=== PATIENT | female | born 1960 | race Caucasian/White ===

== ENCOUNTER 2018-01-11 22:44 | Emergency (ER) | payer BC ==
[~2018-01-11] VITALS: Ht 166.4 cm; Wt 99.0 kg
[2018-01-11 22:51] VITALS: BP 166/92; PULSE 66; RESP 16; O2SAT 96
[2018-01-11 22:54] VITALS: BP 163/101; PULSE 70; RESP 16; O2SAT 96
[2018-01-11] MEDS ORDERED: LEVO75TA3 PO (22:58)
[2018-01-11] MEDS ORDERED: METO1TAB9 PO (22:58)
[2018-01-11] MEDS ORDERED: PRAV20TA2 PO (22:58)
[2018-01-11 22:59] VITALS: BP 197/114; PULSE 70; RESP 16; TEMP 98.4; O2SAT 99
[2018-01-11] MEDS ORDERED: VENTAER INH (23:10)
[2018-01-11 23:35] VITALS: BP 163/92; PULSE 59; RESP 16; O2SAT 98
--- NOTE | 2018-01-11 23:35 | PD ---
HPI . Toxic exposure Chief Complaint: Allergic/Adverse Reaction Time Seen by Provider: 22:48 Travel History International Travel<30 days: No Contact w/Intl Traveler<30days: No Traveled to known affect area: No History of Present Illness HPI 57-year-old female and her daughter walked into the motel room and noted noxious fumes emanating from the apartment next door. Both became instantly lightheaded evacuated themselves from the premises. Patient had daughter called ambulance secondary to her having decreased cognitive abilities as per patient, and feeling lightheaded. Patient had some similar reaction 2 months prior from a contact high as per patient from marijuana in a similar situation in an apartment next door in a motel in [place]. Patient notes interval improvement since being brought in by ambulance notes significant improvement in her drowsiness and symptomatology. Patient denies headache, visual changes, stiff neck, chest pain, shortness of breath, leg swelling, focal weakness numbness or tingling, seizure activity. PFSH Past Medical History Narrative Medical Past medical history reviewed Asthma: Yes High Cholesterol: Yes Diminished Hearing: No GERD: Yes Hypertension: Yes Thyroid Disease: Yes Tetanus Vaccination: < 5 Years Influenza Vaccination: Yes ?: Not LMP: MENOPAUSAL : 1 Para: 1 Past Surgical History Oral Surgery: Yes (WISDOM TEETH X4) Social History Alcohol Use: No Tobacco Use: No Substance Use: No Allergies-Medications (Allergen,Severity, Reaction): Coded Allergies: acetaminophen (Verified Allergy, Severe, HIVES, 01/11/18) oxycodone (Verified Allergy, Severe, HIVES, 01/11/18) phenolphthalein (Verified Allergy, Severe, HIVES, 01/11/18) Reported Meds & Prescriptions Reported Meds & Active Scripts Active Reported Ventolin Hfa 18 GM Inh (Albuterol Sulfate) 90 Mcg/Act Aer 2 Puff INH Q4-6H PRN Pravastatin 20 Mg Tab 20 Mg PO DAILY Levothyroxine (Levothyroxine Sodium) 75 Mcg Tab 75 Mcg PO DAILY Metoprolol Succinate ER 24 HR (Metoprolol Succinate) 50 Mg Tab 50 Mg PO DAILY Narrative Medication Allergies and medications reviewed Review of Systems Except as stated in HPI: all other systems reviewed are Neg General / Constitutional: No: Fever Eyes: Positive: Blurred Vision, No: Diploplia, Visual changes HENT: Positive: Lightheadedness, No: Headaches Cardiovascular: No: Chest Pain or Discomfort Respiratory: No: Shortness of Breath Gastrointestinal: No: Abdominal Pain Genitourinary: No: Dysuria Musculoskeletal: No: Pain Skin: No Rash Neurologic: No: Weakness Psychiatric: No: Depression Endocrine: No: Polydipsia Hematologic/Lymphatic: No: Easy Bruising Physical Exam Narrative GENERAL: Awake alert oriented 3 no acute distress vital signs afebrile normal and stable. Patient's blood pressure was elevated at presentation, normalized without treatment. SKIN: Warm and dry. Color is normal in data for sinus pallor HEAD: Atraumatic. Normocephalic. EYES: Pupils equal and round. No scleral icterus. No injection or drainage. ENT: No nasal bleeding or discharge. Mucous membranes pink and moist. No oral lesions NECK: Trachea midline. No JVD. Supple nontender full range of motion CARDIOVASCULAR: Regular rate and rhythm. S1-S2 no murmurs rubs or gallops RESPIRATORY: No accessory muscle use. Clear to auscultation. Breath sounds equal bilaterally. GASTROINTESTINAL: Abdomen soft, non-tender, nondistended. Hepatic and splenic margins not palpable. MUSCULOSKELETAL: Extremities without clubbing, cyanosis, or edema. No obvious deformities. NEUROLOGICAL: Awake and alert. No obvious cranial nerve deficits. Motor grossly within normal limits. Five out of 5 muscle strength in the arms and legs. Normal speech. PSYCHIATRIC: Appropriate mood and affect; insight and judgment normal. Data Data Last Documented VS Vital Signs Date Time Temp Pulse Resp B/P (MAP) Pulse Ox O2 Delivery O2 Flow Rate FiO2 01/11/18 22:59 98.4 70 16 197/114 (141) 99 01/11/18 22:45 Room Air [facility] Medical Decision Making Medical Screen Exam Complete: Yes Emergency Medical Condition: Yes Medical Record Reviewed: Yes Differential Diagnosis Toxic ingestion/exposure, secondary intoxication, Narrative Course Patient observed in ED, had continued improvement. No obvious toxidrome at presentation, patient's blood pressure normalized, tube patient's norm. Patient has history of hypertension. 163/92. Currently will not treat, recommend patient follow-up with her doctor for repeat blood pressure checks on Sunday. If possible patient is to not return to that [facility] room. Diagnosis Primary Impression: Exposure to toxic substance Patient Instructions: General Instructions, Smoke Inhalation (ED) Additional Instructions: Recommend getting lots of fresh air, do not return to the same motel room. Follow up with [facility]. Return for worsening Disposition: 01 DISCHARGE HOME Condition: Stable Cm Ratliff MD Jan 11, 2018 23:35
== END 2018-01-11 23:54 | disposition home or self-care (01) ==
LOC: PHED 22:44
DX: R42 Dizziness and giddiness (principal); E78.00 Pure hypercholesterolemia, unspecified; I10 Essential (primary) hypertension; J45.909 Unspecified asthma, uncomplicated; Z77.110 Contact with and (suspected) exposure to air pollution
CPT/HCPCS: 99281